=== PATIENT | female | born 1970 | race Caucasian/White ===

== ENCOUNTER 2019-10-15 12:19 | Emergency (ER) | payer MEDICAID ==
[~2019-10-15] VITALS: Ht 162.6 cm; Wt 76.7 kg
[2019-10-15 12:47] VITALS: Ht 162.6 cm; Wt 76.7 kg
[2019-10-15 13:40] VITALS: BP 141/69
== END 2019-10-15 13:40 | disposition home or self-care (01) ==
LOC: ED 12:19
DX: L02.411 Cutaneous abscess of right axilla (principal); I10 Essential (primary) hypertension; E11.9 Type 2 diabetes mellitus without complications